=== PATIENT | female | born 1940 | race Caucasian/White ===

== ENCOUNTER 2020-04-03 14:58 | Inpatient (IN) ==
[2020-04-03] MEDS ORDERED: ONDANSETRON 4 MG/2 ML VIAL IV PRN (15:44)
[2020-04-03] MEDS ORDERED: ACETAMINOPHEN 325 MG TABLET PO PRN (15:44)
[2020-04-03] MEDS ORDERED: SODIUM CHLORIDE 0.9% 1,000 ML IV PRN (17:47)
[2020-04-03] MEDS ORDERED: FUROSEMIDE 20 MG/2 ML VIAL IV ONE ×2 (17:50→21:00)
[2020-04-03 17:55] LABS: Hgb & Hct Comparison OK
[2020-04-03 17:58] LABS: Hematocrit 13.2 VOL% (35.7-47.0); Hemoglobin 3.3 GM/DL (12.0-16.0)
[2020-04-03] MEDS: DOCUSATE SODIUM 100 MG CAPSULE PO SCH (23:25)
[2020-04-04] MEDS ORDERED: FUROSEMIDE 20 MG/2 ML VIAL IV ONE (03:30)
[2020-04-04 08:05] LABS: Basophils # 0.1 10*3/uL (0.0-0.2); Basophils % 0.8 % (0.0-0.8); Eosinophils # 0.2 10*3/uL (0.0-0.87); Eosinophils % 1.5 % (0.00-10.9); Hematocrit 25.8 VOL% (35.7-47.0); Hemoglobin 7.8 GM/DL (12.0-16.0); Hgb & Hct Comparison OK; Immature Granulocytes % 0.5 %; Immature Granulocytes Absolute 0.05 #; Lymphocytes # 1.2 10*3/uL (1.4-4.0); Lymphocytes % 12.6 % (21.3-54.2); Mean Corpuscular HGB Conc 30.2 GM/DL (32-36); Mean Corpuscular Hemoglobin 21 PG (27-34); Mean Corpuscular Volume 68.6 FL (87-102); Monocytes # 0.9 10*3/uL (0.11-0.8); Monocytes % 8.8 % (1.7-12.7); Neutrophils # 7.4 10*3/uL (1.4-7.4); Neutrophils % 75.8 % (38.7-73.9)
[2020-04-04] MEDS ORDERED: hydrALAZINE 20 MG/1 ML VIAL IV PRN (08:25)
[2020-04-04 08:26] LABS: Albumin/Globulin Ratio 0.7 RATIO (1.1-2.2); Anion Gap 6.4 MMOL/L (5.0-15.0); Bilirubin,Total 3.1 MG/DL (0.2-1.0); Globulin 3.6 G/DL (2.3-3.5); Osmolality,Calculated 264.2 MOS/KG (273-304); Potassium 3.4 MMOL/L (3.5-5.1)
[2020-04-04 08:44] LABS: Platelet Count 757 T/CUMM (130-400); Platelet Estimate Increased
[2020-04-04 08:45] LABS: Hypochromasia 1+; Polychromasia 1+; Target Cells Few
[2020-04-04] MEDS: PANTOPRAZOLE 40 MG TABLET PO SCH (09:14)
[2020-04-04] MEDS: amLODIPine 5 MG TABLET PO SCH (09:14)
[2020-04-04] MEDS: DOCUSATE SODIUM 100 MG CAPSULE PO SCH ×2 (09:15→21:28)
[2020-04-04] MEDS: POTASSIUM CHLORIDE 20 MEQ TABLET PO PRN ×2 (17:56→21:43)
[2020-04-05 06:33] LABS: Basophils # 0.1 10*3/uL (0.0-0.2); Basophils % 1.1 % (0.0-0.8); Eosinophils # 0.2 10*3/uL (0.0-0.87); Eosinophils % 1.9 % (0.00-10.9); Hematocrit 33.9 VOL% (35.7-47.0); Hemoglobin 10.6 GM/DL (12.0-16.0); Hgb & Hct Comparison OK; Immature Granulocytes % 0.8 %; Immature Granulocytes Absolute 0.09 #; Lymphocytes # 1.5 10*3/uL (1.4-4.0); Lymphocytes % 13.2 % (21.3-54.2); Mean Corpuscular HGB Conc 31.3 GM/DL (32-36); Mean Corpuscular Hemoglobin 23 PG (27-34); Mean Corpuscular Volume 73.1 FL (87-102); Monocytes % 9.2 % (1.7-12.7); NRBC # 0.12 10*3/uL; Neutrophils # 8.4 10*3/uL (1.4-7.4); Neutrophils % 73.8 % (38.7-73.9); Nucleated Red Blood Cells % 1.1 /100WBC; Platelet Count 658 T/CUMM (130-400)
[2020-04-05 07:03] LABS: Anion Gap 9.5 MMOL/L (5.0-15.0); Magnesium 2.1 MG/DL (1.8-2.4); Osmolality,Calculated 270.8 MOS/KG (273-304); Potassium 4.5 MMOL/L (3.5-5.1)
[2020-04-05] MEDS ORDERED: FUROSEMIDE 20 MG/2 ML VIAL IV ONE (08:24)
[2020-04-05] MEDS: DOCUSATE SODIUM 100 MG CAPSULE PO SCH ×2 (09:45→21:17)
[2020-04-05] MEDS: PANTOPRAZOLE 40 MG TABLET PO SCH (09:45)
[2020-04-05] MEDS: amLODIPine 5 MG TABLET PO SCH (09:45)
[2020-04-06] MEDS: amLODIPine 5 MG TABLET PO SCH (08:57)
[2020-04-06] MEDS: DOCUSATE SODIUM 100 MG CAPSULE PO SCH ×2 (08:57→20:52)
[2020-04-06] MEDS: PANTOPRAZOLE 40 MG TABLET PO SCH (08:57)
[2020-04-07 06:19] LABS: Basophils # 0.1 10*3/uL (0.0-0.2); Basophils % 1.5 % (0.0-0.8); Eosinophils # 0.3 10*3/uL (0.0-0.87); Eosinophils % 2.9 % (0.00-10.9); Hemoglobin 10.1 GM/DL (12.0-16.0); Hgb & Hct Comparison OK; Immature Granulocytes % 0.3 %; Immature Granulocytes Absolute 0.03 #; Lymphocytes # 1.8 10*3/uL (1.4-4.0); Lymphocytes % 18.9 % (21.3-54.2); Mean Corpuscular HGB Conc 29.7 GM/DL (32-36); Mean Corpuscular Hemoglobin 22 PG (27-34); Mean Corpuscular Volume 74.9 FL (87-102); Monocytes % 10.5 % (1.7-12.7); NRBC # 0.02 10*3/uL; Neutrophils # 6.3 10*3/uL (1.4-7.4); Neutrophils % 65.9 % (38.7-73.9); Nucleated Red Blood Cells % 0.2 /100WBC; Platelet Count 574 T/CUMM (130-400)
[2020-04-07 06:36] LABS: Hypochromasia 1+; Platelet Estimate Increased
[2020-04-07] MEDS ORDERED: propofoL 200 MG/20 ML VIAL IV ONE (09:00)
[2020-04-07] MEDS ORDERED: LIDOCAINE 2% 5 ML VIAL ONE (09:00)
[2020-04-07] MEDS: SODIUM CHLORIDE 0.9% 500 ML IV SCH (11:25)
[2020-04-07] MEDS ORDERED: BISACODYL 5 MG TABLET PO ONE (12:00)
[2020-04-07] MEDS: diphenhydrAMINE CAP 25 MG CAPSULE PO PRN (13:20)
[2020-04-07] MEDS: FLUCONAZOLE 100 MG TABLET PO SCH (13:21)
[2020-04-07] MEDS: DOCUSATE SODIUM 100 MG CAPSULE PO SCH ×2 (13:21→22:33)
[2020-04-07] MEDS: PANTOPRAZOLE 40 MG TABLET PO SCH (13:21)
[2020-04-07] MEDS: amLODIPine 5 MG TABLET PO SCH ×2 (13:21→16:07)
[2020-04-07] MEDS ORDERED: POLYETHYLENE GLYCOL POWDER 255 GM BOTTLE PO ONE (18:00)
[2020-04-08] MEDS ORDERED: MAGNESIUM CITRATE 300 ML BOTTLE PO ONE (06:00)
[2020-04-08 06:25] LABS: Basophils # 0.1 10*3/uL (0.0-0.2); Basophils % 1.2 % (0.0-0.8); Eosinophils # 0.2 10*3/uL (0.0-0.87); Hematocrit 35.1 VOL% (35.7-47.0); Hemoglobin 10.5 GM/DL (12.0-16.0); Hgb & Hct Comparison OK; Immature Granulocytes % 0.3 %; Immature Granulocytes Absolute 0.03 #; Lymphocytes # 1.3 10*3/uL (1.4-4.0); Lymphocytes % 15.3 % (21.3-54.2); Mean Corpuscular HGB Conc 29.9 GM/DL (32-36); Mean Corpuscular Hemoglobin 23 PG (27-34); Monocytes # 0.8 10*3/uL (0.11-0.8); Neutrophils # 6.3 10*3/uL (1.4-7.4); Neutrophils % 72.2 % (38.7-73.9); Platelet Count 511 T/CUMM (130-400)
[2020-04-08 06:41] LABS: INR 1.1; PT Patient Result 11.5 SECS (9.8-11.9)
[2020-04-08 06:52] LABS: Anion Gap 8.6 MMOL/L (5.0-15.0); Osmolality,Calculated 270.7 MOS/KG (273-304); Potassium 3.6 MMOL/L (3.5-5.1)
[2020-04-08 06:55] LABS: Anion Gap 6.6 MMOL/L (5.0-15.0); Bilirubin,Direct 0.34 MG/DL (0.0-0.20); Bilirubin,Total 1.3 MG/DL (0.2-1.0); Osmolality,Calculated 269.7 MOS/KG (273-304); Potassium 3.6 MMOL/L (3.5-5.1)
[2020-04-08 07:05] LABS: Hypochromasia 1+; Platelet Estimate Adequate
[2020-04-08] MEDS: DOCUSATE SODIUM 100 MG CAPSULE PO SCH ×2 (08:24→22:19)
[2020-04-08] MEDS: FLUCONAZOLE 100 MG TABLET PO SCH (08:24)
[2020-04-08] MEDS: amLODIPine 10 MG TABLET PO SCH (08:25)
[2020-04-08] MEDS: PANTOPRAZOLE 40 MG TABLET PO SCH (08:25)
[2020-04-08] MEDS ORDERED: propofoL 200 MG/20 ML VIAL IV ONE (09:00)
[2020-04-08] MEDS ORDERED: LIDOCAINE 2% 5 ML VIAL ONE (09:00)
[2020-04-08] MEDS: SODIUM CHLORIDE 0.9% 500 ML IV SCH (11:15)
[2020-04-08] MEDS: LACTATED RINGERS 1,000 ML IV SCH (12:00)
[2020-04-09] MEDS: diphenhydrAMINE CAP 25 MG CAPSULE PO PRN ×2 (01:09→18:27)
[2020-04-09] MEDS ORDERED: ERTAPENEM 1,000 MG in SODIUM CHLORIDE 0.9% 100 ML IV ONE (09:13)
[2020-04-09] MEDS: amLODIPine 10 MG TABLET PO SCH (09:40)
[2020-04-09] MEDS: FLUCONAZOLE 100 MG TABLET PO SCH (09:41)
[2020-04-09] MEDS: DOCUSATE SODIUM 100 MG CAPSULE PO SCH ×2 (09:41→20:58)
[2020-04-09] MEDS: PANTOPRAZOLE 40 MG TABLET PO SCH (09:41)
[2020-04-09] MEDS: LACTATED RINGERS 1,000 ML IV SCH (10:41)
[2020-04-09] MEDS: NEOMYCIN 500 MG TABLET PO SCH ×2 (12:15→18:24)
[2020-04-09] MEDS: metroNIDAZOLE 500 MG TABLET PO SCH ×2 (12:15→18:25)
[2020-04-09] MEDS: SODIUM CHLORIDE 0.9% 500 ML IV SCH (17:41)
[2020-04-10] MEDS: NEOMYCIN 500 MG TABLET PO SCH (00:31)
[2020-04-10] MEDS: metroNIDAZOLE 500 MG TABLET PO SCH (00:31)
[2020-04-10 07:17] LABS: Basophils # 0.1 10*3/uL (0.0-0.2); Basophils % 1.1 % (0.0-0.8); Eosinophils # 0.2 10*3/uL (0.0-0.87); Eosinophils % 2.5 % (0.00-10.9); Hematocrit 36.1 VOL% (35.7-47.0); Hemoglobin 10.7 GM/DL (12.0-16.0); Hgb & Hct Comparison OK; Immature Granulocytes % 0.4 %; Immature Granulocytes Absolute 0.03 #; Lymphocytes # 1.2 10*3/uL (1.4-4.0); Lymphocytes % 17.3 % (21.3-54.2); Mean Corpuscular HGB Conc 29.6 GM/DL (32-36); Mean Corpuscular Hemoglobin 23 PG (27-34); Mean Corpuscular Volume 75.8 FL (87-102); Monocytes # 0.5 10*3/uL (0.11-0.8); Monocytes % 7.5 % (1.7-12.7); Neutrophils # 5.1 10*3/uL (1.4-7.4); Neutrophils % 71.2 % (38.7-73.9); Platelet Count 445 T/CUMM (130-400)
[2020-04-10 07:30] LABS: Anion Gap 8.7 MMOL/L (5.0-15.0); Magnesium 2.1 MG/DL (1.8-2.4); Osmolality,Calculated 269.8 MOS/KG (273-304); Potassium 3.7 MMOL/L (3.5-5.1)
[2020-04-10 07:47] LABS: Platelet Estimate Normal
[2020-04-10 07:49] LABS: Hypochromasia 2+
[2020-04-10] MEDS ORDERED: ERTAPENEM 1,000 MG in SODIUM CHLORIDE 0.9% 100 ML IV ONE (09:00)
[2020-04-10] MEDS: DOCUSATE SODIUM 100 MG CAPSULE PO SCH ×2 (09:03→20:03)
[2020-04-10] MEDS: amLODIPine 10 MG TABLET PO SCH (09:03)
[2020-04-10] MEDS: PANTOPRAZOLE 40 MG TABLET PO SCH (09:03)
[2020-04-10] MEDS: FLUCONAZOLE 100 MG TABLET PO SCH (09:03)
[2020-04-10] MEDS ORDERED: BUPIVACAINE MPF 0.25% 30 ML VIAL ONE (14:36)
[2020-04-10] MEDS: SODIUM CHLORIDE 0.9% 500 ML IV SCH (15:12)
[2020-04-10] MEDS ORDERED: INDOCYANINE GREEN 25 MG VIAL IV ONE (16:43)
[2020-04-10] MEDS ORDERED: SUGAMMADEX 200 MG/2 ML VIAL IV ONE (17:58)
[2020-04-10] MEDS ORDERED: SEVOFLURANE 1 UNIT/15 MINUTE INH ONE (18:37)
[2020-04-10] MEDS ORDERED: LIDOCAINE 2% 5 ML VIAL ONE (18:37)
[2020-04-10] MEDS ORDERED: propofoL 200 MG/20 ML VIAL IV ONE (18:37)
[2020-04-10] MEDS ORDERED: MIDAZOLAM 2 MG/2 ML VIAL ONE (18:37)
[2020-04-10] MEDS ORDERED: PHENYLEPHRINE DRIP 20 MG/250 ML PREMIX IV ONE (18:37)
[2020-04-10] MEDS ORDERED: fentaNYL 100 MCG/2 ML VIAL ONE (18:38)
[2020-04-10] MEDS ORDERED: ROCURONIUM 100 MG/10 ML VIAL IV ONE (18:38)
[2020-04-10] MEDS ORDERED: ONDANSETRON 4 MG/2 ML VIAL ONE (18:38)
[2020-04-10] MEDS ORDERED: DEXAMETHASONE 4 MG/1 ML VIAL ONE (18:38)
[2020-04-10] MEDS: HYDROmorphone 2 MG/1 ML VIAL IV PRN (20:01)
[2020-04-10] MEDS: LACTATED RINGERS 1,000 ML IV SCH (20:42)
[2020-04-11] MEDS: HYDROmorphone 2 MG/1 ML VIAL IV PRN (03:22)
[2020-04-11 06:11] LABS: Basophils % 0.2 % (0.0-0.8); Hematocrit 37.1 VOL% (35.7-47.0); Hgb & Hct Comparison NOT COMPARABLE; Immature Granulocytes % 0.4 %; Immature Granulocytes Absolute 0.08 #; Lymphocytes # 0.8 10*3/uL (1.4-4.0); Lymphocytes % 4.1 % (21.3-54.2); Mean Corpuscular HGB Conc 29.4 GM/DL (32-36); Mean Corpuscular Hemoglobin 23 PG (27-34); Mean Corpuscular Volume 77.9 FL (87-102); Monocytes # 1.1 10*3/uL (0.11-0.8); Monocytes % 5.7 % (1.7-12.7); Neutrophils # 17.5 10*3/uL (1.4-7.4); Neutrophils % 89.6 % (38.7-73.9); Platelet Count 419 T/CUMM (130-400)
[2020-04-11 06:26] LABS: C-Reactive Protein Inflamm 1.67 MG/DL (0-0.32); Osmolality,Calculated 265.4 MOS/KG (273-304)
[2020-04-11] MEDS: LACTATED RINGERS 1,000 ML IV SCH ×2 (06:32→17:22)
[2020-04-11 07:02] LABS: Hemoglobin 10.8 GM/DL (12.0-16.0)
[2020-04-11 07:23] LABS: Eosinophils 1 % (0-10); Hypochromasia 2+; Lymphocytes 2 % (20-55); Monocytes 2 % (2-15); Segmented Neutrophils 95 % (50-85); Total Cells Counted 100
[2020-04-11 07:24] LABS: Platelet Estimate Increased; Polychromasia Slight
[2020-04-11] MEDS: KETOROLAC 15 MG/1 ML VIAL IV SCH ×3 (08:47→20:14)
[2020-04-11] MEDS: amLODIPine 10 MG TABLET PO SCH (08:51)
[2020-04-11] MEDS: DOCUSATE SODIUM 100 MG CAPSULE PO SCH ×2 (08:51→20:14)
[2020-04-11] MEDS: PANTOPRAZOLE 40 MG TABLET PO SCH (08:51)
[2020-04-11] MEDS: FLUCONAZOLE 100 MG TABLET PO SCH (08:55)
[2020-04-12] MEDS: KETOROLAC 15 MG/1 ML VIAL IV SCH ×4 (02:43→20:49)
[2020-04-12] MEDS: LACTATED RINGERS 1,000 ML IV SCH ×4 (02:47→23:44)
[2020-04-12] MEDS: PANTOPRAZOLE 40 MG TABLET PO SCH (08:47)
[2020-04-12] MEDS: DOCUSATE SODIUM 100 MG CAPSULE PO SCH ×2 (08:47→20:49)
[2020-04-12] MEDS: FLUCONAZOLE 100 MG TABLET PO SCH (08:48)
[2020-04-12] MEDS: amLODIPine 10 MG TABLET PO SCH (08:48)
[2020-04-12 14:22] LABS: Basophils % 0.4 % (0.0-0.8); Eosinophils # 0.1 10*3/uL (0.0-0.87); Eosinophils % 1.2 % (0.00-10.9); Hematocrit 37.8 VOL% (35.7-47.0); Hemoglobin 10.8 GM/DL (12.0-16.0); Immature Granulocytes % 0.4 %; Immature Granulocytes Absolute 0.04 #; Lymphocytes # 1.1 10*3/uL (1.4-4.0); Mean Corpuscular HGB Conc 28.6 GM/DL (32-36); Mean Corpuscular Hemoglobin 23 PG (27-34); Mean Corpuscular Volume 78.6 FL (87-102); Monocytes # 0.7 10*3/uL (0.11-0.8); Monocytes % 6.9 % (1.7-12.7); Neutrophils # 7.6 10*3/uL (1.4-7.4); Neutrophils % 80.1 % (38.7-73.9); Platelet Count 387 T/CUMM (130-400)
[2020-04-12 14:23] LABS: Hgb & Hct Comparison NOT COMPARABLE
[2020-04-12 14:26] LABS: Albumin/Globulin Ratio 0.6 RATIO (1.1-2.2); Anion Gap 8.7 MMOL/L (5.0-15.0); Bilirubin,Total 0.7 MG/DL (0.2-1.0); Globulin 3.9 G/DL (2.3-3.5); Magnesium 1.9 MG/DL (1.8-2.4); Potassium 3.7 MMOL/L (3.5-5.1)
[2020-04-12] MEDS: POTASSIUM CHLORIDE 20 MEQ TABLET PO PRN (14:44)
[2020-04-12 20:07] LABS: Platelet Estimate Normal
[2020-04-12 20:08] LABS: Hypochromasia 1+
[2020-04-13] MEDS: KETOROLAC 15 MG/1 ML VIAL IV SCH ×4 (02:47→20:28)
[2020-04-13 04:46] LABS: Basophils # 0.1 10*3/uL (0.0-0.2); Basophils % 0.7 % (0.0-0.8); Eosinophils # 0.3 10*3/uL (0.0-0.87); Eosinophils % 3.7 % (0.00-10.9); Immature Granulocytes % 0.4 %; Immature Granulocytes Absolute 0.03 #; Lymphocytes % 12.6 % (21.3-54.2); Mean Corpuscular HGB Conc 28.3 GM/DL (32-36); Mean Corpuscular Hemoglobin 22 PG (27-34); Mean Corpuscular Volume 77.7 FL (87-102); Monocytes # 0.7 10*3/uL (0.11-0.8); Monocytes % 9.1 % (1.7-12.7); Neutrophils % 73.5 % (38.7-73.9); Platelet Count 320 T/CUMM (130-400)
[2020-04-13 05:26] LABS: Hemoglobin 8.5 GM/DL (12.0-16.0); Hgb & Hct Comparison OK
[2020-04-13 05:28] LABS: Albumin/Globulin Ratio 0.7 RATIO (1.1-2.2); Anion Gap 5.2 MMOL/L (5.0-15.0); Bilirubin,Total 0.7 MG/DL (0.2-1.0); Globulin 2.8 G/DL (2.3-3.5); Magnesium 1.8 MG/DL (1.8-2.4); Osmolality,Calculated 272.7 MOS/KG (273-304); Potassium 4.2 MMOL/L (3.5-5.1)
[2020-04-13 06:31] LABS: Platelet Estimate Normal
[2020-04-13 06:39] LABS: INR 1.1; PT Patient Result 11.4 SECS (9.8-11.9); Partial Thromboplastin Time 31.9 SECS (23.9-33.8)
[2020-04-13] MEDS: FLUCONAZOLE 100 MG TABLET PO SCH (08:39)
[2020-04-13] MEDS: DOCUSATE SODIUM 100 MG CAPSULE PO SCH ×2 (08:39→20:28)
[2020-04-13] MEDS: amLODIPine 10 MG TABLET PO SCH (08:40)
[2020-04-13] MEDS: PANTOPRAZOLE 40 MG TABLET PO SCH (08:40)
[2020-04-13] MEDS: LACTATED RINGERS 1,000 ML IV SCH ×2 (09:25→20:27)
[2020-04-14] MEDS: LACTATED RINGERS 1,000 ML IV SCH ×3 (01:00→20:41)
[2020-04-14] MEDS: KETOROLAC 15 MG/1 ML VIAL IV SCH ×4 (03:21→20:42)
[2020-04-14 08:44] LABS: Basophils # 0.1 10*3/uL (0.0-0.2); Eosinophils # 0.6 10*3/uL (0.0-0.87); Eosinophils % 8.1 % (0.00-10.9); Hematocrit 26.5 VOL% (35.7-47.0); Hemoglobin 7.9 GM/DL (12.0-16.0); Hgb & Hct Comparison OK; Immature Granulocytes % 0.3 %; Immature Granulocytes Absolute 0.02 #; Lymphocytes # 1.3 10*3/uL (1.4-4.0); Lymphocytes % 17.9 % (21.3-54.2); Mean Corpuscular HGB Conc 29.8 GM/DL (32-36); Mean Corpuscular Hemoglobin 23 PG (27-34); Monocytes # 0.6 10*3/uL (0.11-0.8); Monocytes % 8.3 % (1.7-12.7); Neutrophils # 4.6 10*3/uL (1.4-7.4); Neutrophils % 64.4 % (38.7-73.9); Platelet Count 318 T/CUMM (130-400)
[2020-04-14 09:05] LABS: Hypochromasia 2+; Platelet Estimate Adequate
[2020-04-14] MEDS: PANTOPRAZOLE 40 MG TABLET PO SCH (10:41)
[2020-04-14] MEDS: amLODIPine 10 MG TABLET PO SCH (10:41)
[2020-04-14] MEDS: DOCUSATE SODIUM 100 MG CAPSULE PO SCH ×2 (10:41→20:42)
[2020-04-14 18:08] LABS: Hematocrit 27.1 VOL% (35.7-47.0); Hemoglobin 7.9 GM/DL (12.0-16.0); Hgb & Hct Comparison OK
[2020-04-15] MEDS: KETOROLAC 15 MG/1 ML VIAL IV SCH ×2 (03:06→09:39)
[2020-04-15] MEDS: LACTATED RINGERS 1,000 ML IV SCH (06:20)
[2020-04-15] MEDS: DOCUSATE SODIUM 100 MG CAPSULE PO SCH (09:37)
[2020-04-15] MEDS: amLODIPine 10 MG TABLET PO SCH (09:39)
[2020-04-15] MEDS: PANTOPRAZOLE 40 MG TABLET PO SCH (09:39)
[2020-04-15 10:50] LABS: Basophils # 0.1 10*3/uL (0.0-0.2); Basophils % 1.4 % (0.0-0.8); Eosinophils # 0.6 10*3/uL (0.0-0.87); Eosinophils % 9.7 % (0.00-10.9); Hgb & Hct Comparison OK; Immature Granulocytes % 0.3 %; Immature Granulocytes Absolute 0.02 #; Lymphocytes % 15.1 % (21.3-54.2); Mean Corpuscular HGB Conc 28.6 GM/DL (32-36); Mean Corpuscular Hemoglobin 22 PG (27-34); Mean Corpuscular Volume 77.6 FL (87-102); Monocytes # 0.4 10*3/uL (0.11-0.8); Monocytes % 6.3 % (1.7-12.7); Neutrophils # 4.2 10*3/uL (1.4-7.4); Neutrophils % 67.2 % (38.7-73.9); Platelet Count 407 T/CUMM (130-400)
[2020-04-15 11:08] LABS: Hypochromasia 1+; Platelet Estimate Adequate
[2020-04-15 11:20] LABS: Magnesium 1.9 MG/DL (1.8-2.4)
[2020-04-15 12:02] VITALS: BP 130/60
== END 2020-04-15 14:31 | disposition home health service (06) ==
LOC: N.TELEN
PROVIDERS: ADMIT Family Medicine; ATTEND Family Medicine